=== PATIENT | male | born 1975 | race Caucasian/White ===

== ENCOUNTER 2021-10-07 08:48 | Emergency (ER) | payer MEDICAID ==
[~2021-10-07] VITALS: Ht 162.6 cm; Wt 77.6 kg
[2021-10-07 08:55] VITALS: BP 159/96
[2021-10-07] MEDS ORDERED: INDO-323 PO (09:31)
[2021-10-07] MEDS ORDERED: PRED20TA5 PO (09:32)
--- NOTE | 2021-10-07 09:45 | NUR ---
46/M PRESENTS TO ED WITH C/O RIGHT FOOT PAIN SINCE YESTERDAY. PATIENT REPORTS PAIN CAME ON SUDDENLY, DENIES INJURY OR TRAUMA, NO DEFORMITY NOTED. PATIENT DENIES TAKING MEDICATION FOR PAIN. PATIENT AMBULATORY WITH ASSISTANCE OF PERSONAL CRUTCHES.
--- NOTE | 2021-10-07 09:55 | NUR ---
Patient discharged with v/s stable. Written and verbal after care instructions FOR LOW PRURINE EATING given and explained. Patient alert, oriented and verbalized understanding of instructions. Ambulatory with CRUTCHES . All questions addressed prior to discharge. ID band removed. Patient advised to follow up with PMD. Rx of given. Opportunity to ask questions provided and answered. Addendum: 10/07/21 at 1004 by PHSEP Patient discharged with v/s stable. Written and verbal after care instructions FOR LOW PRURINE EATING given and explained. Patient alert, oriented and verbalized understanding of instructions. Ambulatory with CRUTCHES . All questions addressed prior to discharge. ID band removed. Patient advised to follow up with PMD. Rx of PREDNISONE AMD INDOMETHACIN given. Opportunity to ask questions provided and answered
--- NOTE | 2021-10-07 10:07 | NUR ---
The patient's care was reviewed and supervised by Kimmy Rodirguez RN.
== END 2021-10-07 09:58 | disposition home or self-care (01) ==
LOC: MED 08:48
DX: M10.9 Gout, unspecified (principal)
CPT/HCPCS: 99283

== ENCOUNTER 2022-03-19 17:20 | Emergency (ER) | payer MEDICAID ==
[~2022-03-19] VITALS: Ht 165.1 cm; Wt 74.8 kg
[~2022-03-19 17:20] MED LIST: INDO-323 PO; PRED20TA5 PO
[2022-03-19 17:28] VITALS: BP 143/71
[2022-03-19 17:58] LABS: BASOPHILS # (AUTO) 0.1 K/uL (0.00-0.22); BASOPHILS % (AUTO) 0.7 % (0.0-2.0); EOSINOPHILS % (AUTO) 0.5 % (0.0-4.0); HEMATOCRIT 39.5 % (36-52); HEMOGLOBIN 13.8 g/dL (12.0-18.0); LYMPHOCYTES % (AUTO) 22.7 % (20.5-51.1); MEAN CORPUSCULAR HEMOGLOBIN 31 pg (27-31); MEAN CORPUSCULAR HGB CONC 35 g/dL (33-37); MEAN CORPUSCULAR VOLUME 87.4 fL (80-94); MONOCYTES # (AUTO) 0.8 K/uL (0.8-1.0); MONOCYTES % (AUTO) 9.3 % (1.7-9.3); NEUTROPHILS # (AUTO) 5.8 K/uL (1.8-7.7); NEUTROPHILS % (AUTO) 66.8 % (42.2-75.2); PLATELET COUNT (AUTO) 298 K/uL (140-450); RED BLOOD CELL COUNT(AUTO) 4.51 MIL/uL (4.20-6.10); WHITE BLOOD COUNT (AUTO) 8.7 K/uL (4.8-10.8)
[2022-03-19 18:17] LABS: ALBUMIN 3.9 g/dL (3.4-5.0); ANION GAP 14.3 (8-16); CARBON DIOXIDE 26.4 mmol/L (21-32); CREATININE 1.2 mg/dL (0.6-1.3); POTASSIUM 3.7 mmol/L (3.5-5.1); TOTAL BILIRUBIN 0.3 mg/dL (0.0-1.0)
--- NOTE | 2022-03-19 18:20 | NUR ---
pt to bed 1 ambulatory
--- NOTE | 2022-03-19 18:25 | NUR ---
rin livingston at bedside examining pt.
--- NOTE | 2022-03-19 18:30 | NUR ---
47/M WALKED IN C/O EPIGASTRIC PAIN ONSET 4 DAYS ACCOMPANIED BY NAUSEA AND VOMITING. DENIES DIARRHEA. AFEBRILE. VITALS STABLE. PMH: DENIES
[2022-03-19] MEDS ORDERED: DICYCLOMINE HCL LIQUID 20 MG, ALUMINUM HYD/MAG/SIMETHICONE 30 ML, LIDOCAINE VISCOUS 2% ... PO ONE ×3 (18:35)
[2022-03-19] MEDS ORDERED: OMEP40EC24 PO (18:41)
[2022-03-19] MEDS ORDERED: ONDA8TAB87 PO (18:41)
[2022-03-19] MEDS ORDERED: DICYCLOMINE HCL LIQUID 10 MG/5 ML UDC ONE (18:44)
[2022-03-19] MEDS ORDERED: ALUMINUM HYD/MAG/SIMETHICONE 30 ML UDC ONE (18:44)
--- NOTE | 2022-03-19 18:55 | NUR ---
Patient discharged with v/s stable. Written and verbal after care instructions given and explained. Patient verbalized understanding. Ambulatory with steady gait. All questions addressed prior to discharge. Advised to follow up with PMD.
== END 2022-03-19 18:55 | disposition home or self-care (01) ==
LOC: MED 17:20
DX: R10.13 Epigastric pain (principal); R11.0 Nausea; Z79.899 Other long term (current) drug therapy
CPT/HCPCS: 36415; 80053; 83690; 85025; 99283

== ENCOUNTER 2022-04-14 08:35 | Emergency (ER) | payer MEDICAID ==
[~2022-04-14] VITALS: Ht 162.6 cm; Wt 74.8 kg
[~2022-04-14 08:35] MED LIST changes: +OMEP40EC24 PO; +ONDA8TAB87 PO
[2022-04-14 09:18] VITALS: BP 161/103
--- NOTE | 2022-04-14 10:06 | NUR ---
47 Y/O MALE BIB SELF C/O LLQ TO LUQ PAIN X1 WEEK, PER PT HE WAS GIVEN UNKNOWN MEDICATION FOR ACID REFLUX 1 WEEK AGO. DENIES ANY VOMITING, DIARRHEA, NAUSEA. PAIN NOTED UPON PALPATION, DENIES CP, DENIES OTHER MEDICATION FOR PAIN pmh: HTN, HDL nka med: denies
--- NOTE | 2022-04-14 10:24 | NUR ---
ERMD AT BEDSIDE FOR EVAL
[2022-04-14] MEDS ORDERED: MORPHINE SULFATE 4 MG/ML SYR IVP ONE (10:25)
[2022-04-14] MEDS ORDERED: KETOROLAC 15 MG/ML VIAL IVP ONE (10:25)
[2022-04-14] MEDS ORDERED: NACL 0.9% 1,000 ML IV ONE (10:25)
[2022-04-14 10:51] LABS: BASOPHILS # (AUTO) 0.1 K/uL (0.00-0.22); BASOPHILS % (AUTO) 0.5 % (0.0-2.0); EOSINOPHILS # (AUTO) 0.1 K/uL (0-0.4); EOSINOPHILS % (AUTO) 0.8 % (0.0-4.0); HEMATOCRIT 42.1 % (36-52); HEMOGLOBIN 14.8 g/dL (12.0-18.0); LYMPHOCYTES # (AUTO) 2.5 K/uL (2.0-11.5); LYMPHOCYTES % (AUTO) 26.5 % (20.5-51.1); MEAN CORPUSCULAR HEMOGLOBIN 31 pg (27-31); MEAN CORPUSCULAR HGB CONC 35 g/dL (33-37); MEAN CORPUSCULAR VOLUME 87.2 fL (80-94); MONOCYTES # (AUTO) 0.8 K/uL (0.8-1.0); MONOCYTES % (AUTO) 8.7 % (1.7-9.3); NEUTROPHILS # (AUTO) 6.1 K/uL (1.8-7.7); NEUTROPHILS % (AUTO) 63.5 % (42.2-75.2); PLATELET COUNT (AUTO) 339 K/uL (140-450); RED BLOOD CELL COUNT(AUTO) 4.83 MIL/uL (4.20-6.10); RED CELL DISTRIBUTION WIDTH 13.4 % (11.6-13.7)
--- NOTE | 2022-04-14 10:52 | NUR ---
PT TAKEN TO CT VIA CARLOS
[2022-04-14 11:07] LABS: WHITE BLOOD COUNT (AUTO) 9.6 K/uL (4.8-10.8)
[2022-04-14 11:15] LABS: ALBUMIN 3.7 g/dL (3.4-5.0); CARBON DIOXIDE 28.6 mmol/L (21-32); POTASSIUM 3.6 mmol/L (3.5-5.1); TOTAL BILIRUBIN 0.4 mg/dL (0.0-1.0)
[2022-04-14 11:19] LABS: APPEARANCE,URINE CLEAR (CLEAR); BILIRUBIN,URINE NEGATIVE (NEGATIVE); BLOOD, URINE 2+ (NEGATIVE); COLOR,URINE YELLOW (YELLOW); LEUKOCYTE ESTERASE ,URINE NEGATIVE (NEGATIVE); NITRITE, URINE NEGATIVE (NEGATIVE); UGLUCOSE NEGATIVE (NEGATIVE)
[2022-04-14 11:24] LABS: RBC,URINE 0-5 /HPF (0-5)
[2022-04-14 11:25] LABS: WBC,URINE 0-5 /HPF (0-5)
[2022-04-14 11:32] VITALS: BP 146/80
[2022-04-14] MEDS ORDERED: ACET-9520 PO (12:43)
[2022-04-14] MEDS ORDERED: IBUP-2213 PO (12:43)
--- NOTE | 2022-04-14 13:00 | NUR ---
Patient discharged with v/s stable. Written and verbal after care instructions ABOUT KIDNEY STONES given and explained. Patient alert, oriented and verbalized understanding of instructions. Ambulatory with steady gait. All questions addressed prior to discharge. ID band removed. Patient advised to follow up with PMD. Rx of ACETAMINOPHEN ER, IBUPROFEN given. Patient educated on indication of medication including possible reaction and side effects. Opportunity to ask questions provided and answered.
== END 2022-04-14 13:00 | disposition home or self-care (01) ==
LOC: MED 08:35
DX: R10.32 Left lower quadrant pain (principal); R10.12 Left upper quadrant pain; I10 Essential (primary) hypertension; E78.5 Hyperlipidemia, unspecified; Z79.899 Other long term (current) drug therapy
CPT/HCPCS: 36415; 74176; 80053; 81001; 83690; 85025; 96374; 96375; 99284; J1885; J2270; J7030

== ENCOUNTER 2022-06-17 19:43 | Emergency (ER) | payer MEDICAID ==
[~2022-06-17] VITALS: Ht 162.6 cm; Wt 76.7 kg
[~2022-06-17 19:43] MED LIST changes: +ACET-9520 PO; +IBUP-2213 PO
[2022-06-17 20:33] VITALS: BP 153/90
[2022-06-17] MEDS ORDERED: DICYCLOMINE HCL LIQUID 20 MG, ALUMINUM HYD/MAG/SIMETHICONE 30 ML, LIDOCAINE VISCOUS 2% ... PO ONE ×3 (21:25)
[2022-06-17 21:37] LABS: BASOPHILS # (AUTO) 0.1 K/uL (0.00-0.22); BASOPHILS % (AUTO) 0.8 % (0.0-2.0); EOSINOPHILS # (AUTO) 0.1 K/uL (0-0.4); EOSINOPHILS % (AUTO) 0.9 % (0.0-4.0); HEMATOCRIT 38.8 % (36-52); HEMOGLOBIN 13.7 g/dL (12.0-18.0); LYMPHOCYTES # (AUTO) 2.3 K/uL (2.0-11.5); LYMPHOCYTES % (AUTO) 24.6 % (20.5-51.1); MEAN CORPUSCULAR HEMOGLOBIN 31 pg (27-31); MEAN CORPUSCULAR HGB CONC 35 g/dL (33-37); MEAN CORPUSCULAR VOLUME 86.8 fL (80-94); MONOCYTES # (AUTO) 1.1 K/uL (0.8-1.0); MONOCYTES % (AUTO) 11.8 % (1.7-9.3); NEUTROPHILS # (AUTO) 5.8 K/uL (1.8-7.7); NEUTROPHILS % (AUTO) 61.9 % (42.2-75.2); PLATELET COUNT (AUTO) 317 K/uL (140-450); RED BLOOD CELL COUNT(AUTO) 4.47 MIL/uL (4.20-6.10); RED CELL DISTRIBUTION WIDTH 13.1 % (11.6-13.7); WHITE BLOOD COUNT (AUTO) 9.4 K/uL (4.8-10.8)
[2022-06-17 21:50] LABS: ALBUMIN 4.5 g/dL (3.4-5.0); ANION GAP 11.3 (8-16); CARBON DIOXIDE 28.8 mmol/L (21-32); POTASSIUM 4.1 mmol/L (3.5-5.1); TOTAL BILIRUBIN 0.2 mg/dL (0.0-1.0)
--- NOTE | 2022-06-17 21:52 | NUR ---
Patient taken to X-ray and US via WC
--- NOTE | 2022-06-17 22:41 | NUR ---
Dr. Jones examining patient.
[2022-06-17 22:45] VITALS: BP 142/90
--- NOTE | 2022-06-17 22:45 | NUR ---
Patient discharged with v/s stable. Written and verbal after care instructions given and explained by Dr. Jones. Patient verbalized understanding. Ambulatory with steady gait. All questions addressed prior to discharge. Advised to follow up with PMD.
[2022-06-17] MEDS ORDERED: ALUMINUM HYD/MAG/SIMETHICONE 30 ML UDC ONE (22:48)
[2022-06-17] MEDS ORDERED: DICYCLOMINE HCL LIQUID 10 MG/5 ML UDC ONE (22:48)
== END 2022-06-17 22:45 | disposition home or self-care (01) ==
LOC: MED 19:43
DX: K29.70 Gastritis, unspecified, without bleeding (principal); K29.80 Duodenitis without bleeding; B96.81 Helicobacter pylori [H. pylori] as the cause of diseases classified elsewhere; I10 Essential (primary) hypertension; Z79.899 Other long term (current) drug therapy; Z79.1 Long term (current) use of non-steroidal anti-inflammatories (NSAID)
CPT/HCPCS: 36415; 76700; 80053; 83690; 85025; 99284; Q0092

== ENCOUNTER 2023-09-17 17:11 | Emergency (ER) | payer MEDICAID ==
[~2023-09-17] VITALS: Ht 162.6 cm; Wt 76.2 kg
[2023-09-17 17:15] VITALS: BP 141/92; PULSE 86; RESP 18; TEMP 97.2; O2SAT 97
[2023-09-17] MEDS: ALUMINUM HYD/MAG/SIMETHICONE 30 ML UDC PO ONE (17:39)
[2023-09-17] MEDS: SUCRALFATE 1 GM TAB PO SCH (17:40)
[2023-09-17 18:43] VITALS: TEMP 97.9
[2023-09-17 18:49] LABS: BASOPHILS # (AUTO) 0.1 K/uL (0.00-0.22); BASOPHILS % (AUTO) 0.7 % (0.0-2.0); EOSINOPHILS # (AUTO) 0.1 K/uL (0-0.4); EOSINOPHILS % (AUTO) 1.1 % (0.0-4.0); HEMATOCRIT 37.1 % (36-52); HEMOGLOBIN 13.1 g/dL (12.0-18.0); LYMPHOCYTES # (AUTO) 2.1 K/uL (2.0-11.5); LYMPHOCYTES % (AUTO) 29.3 % (20.5-51.1); MEAN CORPUSCULAR HEMOGLOBIN 31 pg (27-31); MEAN CORPUSCULAR HGB CONC 35 g/dL (33-37); MEAN CORPUSCULAR VOLUME 86.7 fL (80-94); MONOCYTES # (AUTO) 0.8 K/uL (0.8-1.0); MONOCYTES % (AUTO) 10.4 % (1.7-9.3); NEUTROPHILS # (AUTO) 4.3 K/uL (1.8-7.7); NEUTROPHILS % (AUTO) 58.5 % (42.2-75.2); PLATELET COUNT (AUTO) 289 K/uL (140-450); RED BLOOD CELL COUNT(AUTO) 4.28 MIL/uL (4.20-6.10); RED CELL DISTRIBUTION WIDTH 13.7 % (11.6-13.7); WHITE BLOOD COUNT (AUTO) 7.3 K/uL (4.8-10.8)
[2023-09-17 19:06] LABS: ANION GAP 12.6 (8-16); CALCIUM 8.9 mg/dL (8.5-10.1); CARBON DIOXIDE 26.3 mmol/L (21-32); CREATININE 1.1 mg/dL (0.6-1.3); POTASSIUM 3.9 mmol/L (3.5-5.1)
[2023-09-17 19:08] LABS: ALBUMIN 3.9 g/dL (3.4-5.0); BILIRUBIN,DIRECT 0.1 mg/dL (0.0-0.3); TOTAL BILIRUBIN 0.5 mg/dL (0.0-1.0); TOTAL PROTEIN, SERUM 7.4 g/dL (6.4-8.2)
[2023-09-17] MEDS ORDERED: FAMO-90 PO (19:19)
[2023-09-17] MEDS ORDERED: SUCR-34 PO (19:19)
[2023-09-17] MEDS ORDERED: OMEP20EC11 PO (19:19)
[2023-09-17 19:29] VITALS: BP 144/93; PULSE 66; RESP 18; O2SAT 97
== END 2023-09-17 19:30 | disposition home or self-care (01) ==
LOC: MED 17:11
DX: K27.9 Peptic ulcer, site unspecified, unspecified as acute or chronic, without hemorrhage or perforation (principal); I10 Essential (primary) hypertension; Z79.1 Long term (current) use of non-steroidal anti-inflammatories (NSAID); Z79.899 Other long term (current) drug therapy
CPT/HCPCS: 36415; 80048; 80076; 83690; 85025; 99283